=== PATIENT | female | born 1990 | race Two or more races ===

== ENCOUNTER 2021-04-17 17:33 | Emergency (ER) | payer OTHER ==
[~2021-04-17] VITALS: Ht 175.3 cm; Wt 87.0 kg
[2021-04-17] MEDS ORDERED: MECLIZINE 25MG TABLET PO NR (18:15)
[2021-04-17 18:18] LABS: BASOPHILS % 0.6 % (0.0-2.0); EOSINOPHILS % 0.1 % (0.0-5.0); HEMATOCRIT. 41.9 % (36.0-48.0); HEMOGLOBIN. 14.8 g/dL (12.0-16.0); LYMPHOCYTES % 28.6 % (20.0-50.0); MEAN CORPUSCULAR HEMOGLOBIN 33.9 pg (28.0-32.0); MEAN CORPUSCULAR VOLUME 96.1 fL (81.0-99.0); MEAN PLATELET VOLUME 9.5 fl (7.4-10.4); MONOCYTES % 6.9 % (2.0-8.0); NEUTROPHILS % 63.8 % (40.0-76.0); PLATELET 153 x1000/uL (130-400); RED BLOOD CELL COUNT 4.36 mill/uL (4.2-5.4); RED CELL DISTRIBUTION WIDTH 15.5 % (11.6-14.6)
[2021-04-17 18:27] LABS: CHLORIDE 103 mEq/L (98-107)
[2021-04-17 18:31] LABS: ETHANOL BLOOD < 10 mg/dL
[2021-04-17] MEDS ORDERED: POTASSIUM CHLORIDE 20MEQ TABLET SR PO ONE (18:45)
[2021-04-17] MEDS ORDERED: LORAZEPAM 2MG/ML CPJ IV ONE (18:45)
[2021-04-17] MEDS ORDERED: MECL-159 MT (19:58)
[2021-04-17 20:03] VITALS: BP 155/90
[2021-04-17] MEDS ORDERED: IOHEXOL-350 100 ML BOTTLE ONE (20:10)
== END 2021-04-17 20:24 | disposition home or self-care (01) ==
LOC: ER 17:33
DX: R42 Dizziness and giddiness (principal)
CPT/HCPCS: 36415; 70450; 70496; 80053; 80320; 85025; 96374; 99285; J2060; J8597; Q9967; G0480

== ENCOUNTER 2021-04-27 16:29 | Emergency (ER) | payer OTHER ==
[~2021-04-27] VITALS: Ht 175.3 cm; Wt 84.0 kg
[~2021-04-27 16:29] MED LIST: MECL-159 MT
[2021-04-27 16:35] VITALS: BP 151/104
[2021-04-27] MEDS ORDERED: ACETAMINOPHEN 325MG TABLET PO ONE (18:30)
[2021-04-27] MEDS ORDERED: METOCLOPRAMIDE HCL 10MG/2ML VIAL IV ONE (18:30)
[2021-04-27] MEDS ORDERED: KETOROLAC 15MG/ML VIAL IV ONE (18:30)
[2021-04-27] MEDS ORDERED: ONDA4TAB5 MT (19:20)
== END 2021-04-27 19:36 | disposition home or self-care (01) ==
LOC: ER 16:46
DX: Z02.79 Encounter for issue of other medical certificate (principal); R11.2 Nausea with vomiting, unspecified; I49.9 Cardiac arrhythmia, unspecified
CPT/HCPCS: 93005; 99283

== ENCOUNTER 2021-05-02 20:06 | Emergency (ER) | payer OTHER ==
[~2021-05-02] VITALS: Ht 172.7 cm; Wt 81.0 kg
[~2021-05-02 20:06] MED LIST changes: +ONDA4TAB5 MT
[2021-05-03 03:30] VITALS: BP 140/89
[2021-05-03] MEDS ORDERED: LORAZEPAM 1MG TABLET PO ONE (03:45)
[2021-05-03] MEDS ORDERED: MECL-159 MT (03:50)
== END 2021-05-03 04:00 | disposition home or self-care (01) ==
LOC: ER 20:06
DX: F41.9 Anxiety disorder, unspecified (principal); F15.10 Other stimulant abuse, uncomplicated
CPT/HCPCS: 81025; 99283